=== PATIENT | female | born 2005 | race Caucasian/White ===

== ENCOUNTER 2025-08-06 23:15 | Emergency (ER) | payer MEDICAID, SELFPAY ==
[2025-08-06 23:16] VITALS: BMI 28.3
[2025-08-06 23:47] VITALS: BP 146/85; PULSE 104; RESP 20; TEMP 36.7; O2SAT 95
--- NOTE | 2025-08-07 | PD.EDHA ---
ED Headache RME/HPI General Chief Complaint: Headache Stated Complaint: MIGRAINE HEADACHE Time Seen by Provider: 08/06/25 23:50 Arrival date/time: 08/06/25 23:15 19F with history of migraines (started after giving 2 years ago) presents to ED with 4 days of R-sided MARTÍNEZ. Patient denies URI symptoms, fall/trauma, fevers/chills, and vision changes. Limitations: no limitations Related Data Home Medications ?Medication ?Instructions ?Recorded ?Confirmed vits no.130-ferrous fum 1 tab PO DAILY 08/15/23 09/27/23 27 mg iron-folic acid 800 mcg tablet ( Vitamin) Previous Rx's ?Medication ?Instructions ?Recorded misoprostol 200 mcg tablet 800 mcg (4 x 200 mcg) PO .x1 #4 10/16/23 (Cytotec) tabs rizatriptan 10 mg disintegrating See Rx Instructions PO .COMPLEX 08/07/25 tablet (Maxalt-PSYCHIATRIC REGISTERED NURSE) #14 tabs Allergies Allergy/AdvReac Type Severity Reaction Status Date / Time No Known Allergies Allergy Verified 08/06/25 23:15 Review of Systems Review of Systems Systems Reviewed: All systems reviewed, normal except as documented Constitutional Constitutional: Reports as per HPI and Reports headache(s) ENT Ears, Nose, Mouth, and Throat: Reports headache(s) Neurologic Neurologic: Reports headache(s) Past Medical History Past Medical History NEUROLOGIC: Negative Neurological Disorders CARDIAC: Negative Cardiac Disorders or Congestive Heart Failure RESPIRATORY: Negative Chronic Obstructive Pulmonary Disease (COPD) GASTROINTESTINAL: Negative Gastrointestinal Disorders GENITOURINARY: Negative Genitourinary Disorders or Renal Disease REPRODUCTIVE: Negative Pelvic Inflammatory Disease MUSCULOSKELETAL: Negative Musculoskeletal Disorders ENT: Negative Cataracts ENDOCRINE: Negative Endocrine Disorders, Diabetes Mellitus Type 1 or Diabetes Mellitus Type 2 HEMATOLOGIC: Positive Anemia; Negative Blood Disorders, Leukemia, Hemophilia, Thalassemia, Sickle Cell Disease or Clotting Problems OTHER HISTORY: Negative Hospitalization, Autoimmune Disease, Down Syndrome, Developmental Delay, Falls or Organ Transplant Family History FAMILY HISTORY: Positive Family Respiratory Disorders; Negative Family Psychiatric Problems, Family Cardiac Disorders, Family Gastrointestinal Problems, Family Cancer, Family Surgery or Family Anesthesia Reaction Surgical History SURGICAL: Positive Tonsillectomy; Negative Cardiac Surgery, Endocrine Surgery, Ear Surgery, Tympanostomy Tube, Eye Surgery, Nose Surgery, Oral Surgery, Adenoidectomy, Cochlear Implant, Corneal Transplant, Throat Surgery, Abdominal Surgery, Tracheostomy, Nephrectomy, Joint Replacement, Neurologic Surgery, Mastectomy, Section, Vasectomy or Organ Transplant Social History SMOKING STATUS: Current every day smoker SUBSTANCE USE: does not use ED Exam General Limitations: Present no limitations General appearance: Present alert and in no apparent distress Head Head exam: Present atraumatic Eye Eye exam: Present normal appearance, PERRL and EOMI Neck Neck exam: Present normal inspection, full ROM and trachea midline Chest Chest inspection: Present normal inspection and symmetric chest wall rise Neurological Exam Neurological exam: Present alert, oriented X3 and CN II-XII intact Psychiatric Psychiatric exam: Present normal affect and normal mood Skin Skin exam: Present warm, dry, intact and normal color Course Quality Measures none Orders Category Date Time Status Metoclopramide [Reglan] Med 08/06/25 23:53 Discontinued 10 mg PO X1 ONE SUMAtriptan INJ [Imitrex Inj] Med 08/06/25 23:53 Discontinued 6 mg SC X1 ONE Vital Signs Vital signs: Vital Signs Temperature 98.1 F 08/06/25 23:47 Pulse Rate 104 H 08/06/25 23:47 Respiratory Rate 20 08/06/25 23:47 Blood Pressure 146/85 H 08/06/25 23:47 Pulse Oximetry (%) 95 08/06/25 23:47 Oxygen Delivery Method Room Air 08/06/25 23:47 O2 at 95% on RA and WNLs Headache MDM Narrative MDM Narrative:: 19F with history of migraines (started after giving 2 years ago) presents to ED with 4 days of R-sided MARTÍNEZ. Patient denies URI symptoms, fall/trauma, fevers/chills, and vision changes. Physical exam reveals normal pupil response and EOM. CN II-XII grossly intact. Speech normal. No sinus tenderness. Patient is afebrile, calm, and alert. Migraine meds improved symptoms. Patient data External records reviewed:: [facility] previous records Clinical information provided by:: patient Social determinants that could affect healthcare access:: none Patient has the following chronic illnesses:: migraines How is presenting disease/condition affected by chronic disease/condition?: caused by Evaluation data The following diagnostics were reviewed and interpreted by me:: other (specify) (none) Lab and/or radiology exams considered but not ordered:: not ordered Interpretation Summary: n/a Medications / Prescriptions Medications or Prescriptions considered but not ordered:: ordered Medication administrations:: Medication Administration History Discontinued Medications Metoclopramide HCl (Metoclopramide 5 Mg Tablet) 10 mg PO X1 ONE Stop: 08/06/25 23:54 Last Admin: 08/07/25 00:12 Dose: 10 mg Documented By: DEONTE Sumatriptan Succinate (Sumatriptan Inj 6 Mg/0.5 Ml Vial) 6 mg SC X1 ONE Stop: 08/06/25 23:54 Last Admin: 08/07/25 00:12 Dose: 6 mg Documented By: DEONTE above Consultations Consultation(s) initiated? (list below): No Diagnosis Differential diagnosis headache: migraine, tension headache, subarachnoid hemorrhage, headache, meningitis, sinusitis and postconcussion syndrome Most likely diagnosis given after review of the tests above:: migraine Admission Indicated Admission indicated?: not indicated Admission Request Was there a request for admission?: No Disposition Plan Disposition Plan: Discharge Discharge Attestation Discharge Attestation: The patient and all family members were given an opportunity to ask questions and understood the discharge instructions. Discharge instructions specifically effects, indications for sooner follow up or return to the emergency department, and the expected course of current diagnosis. Patient condition: Stable Discharge Plan Plan Patient Disposition: HOME (Self Care) Discharge Disposition comment: Stable Prescriptions/Referrals Prescriptions/Med Rec: New rizatriptan [Maxalt-PSYCHIATRIC REGISTERED NURSE] 10 mg tablet,disintegrating See Rx Instructions .ROUTE .COMPLEX Qty: 14 0RF Rx Instructions: take 1 tab at onset of headache; if no relief may repeat 1 tab after at least 2 hrs; max = 3 tabs/24 hr No Action Vitamin 27 mg iron- 800 mcg tablet 1 tab PO DAILY Patient Comments: TAKE 1 TABLET BY MOUTH EVERY DAY FOR 90 DAYS misoprostol [Cytotec] 200 mcg tablet 800 mcg PO .x1 Qty: 4 0RF Problem List Clinical Impression: Migraine Patient/Caregiver Discharge Instructions Education Materials: ED Headache, Migraine, Classic Additional Instructions: Please follow-up with PCP within 24-48 hours and return immediately if symptoms worsen. Print Language: Upper Sorbian Stand Alone Forms: Patient Portal Info Letter PA/[employer] Supervising Physician PA/[employer] Supervising Physician: Dr. Osullivan
[2025-08-07] MEDS: METOCLOPRAMIDE 5 MG TABLET 10 MG PO (00:12)
[2025-08-07] MEDS: SUMAtriptan INJ 6 MG/0.5 ML VIAL SC (00:12)
== END 2025-08-07 01:03 | disposition home or self-care (01) ==
LOC: SERX 08-07 01:18
PROVIDERS: Emergency Provider Emergency Medicine
DX: G43.909 Migraine, unspecified, not intractable, without status migrainosus (principal)
CPT/HCPCS: 99281; J3030; A9270